=== PATIENT | female | born 2000 | race Caucasian/White ===

== ENCOUNTER 2021-10-18 06:04 | Inpatient (IN) ==
[2021-10-18] MEDS ORDERED: PITOCIN ONE (06:28)
[2021-10-18] MEDS ORDERED: D5 1/2 NS 1,000 ML 1,000 ML IV ONE (06:29)
[2021-10-18] MEDS ORDERED: BETADINE SOLN ONE (06:29)
[2021-10-18] MEDS ORDERED: D5 1/2 NS 1,000 mL + PITOCIN 20 UNITS/L IV 20 UNITS/1,000 ML BAG IV ONE (06:30)
[2021-10-18] MEDS ORDERED: D5 LR + PITOCIN 10 UNITS/L 10 UNITS/1,000 ML BAG IV ONE (06:30)
[2021-10-18] MEDS ORDERED: AMPICILLIN VIAL 2 GRAM 2 G in NS 100 ML IV 100 ML IV SCH (06:59)
[2021-10-18] MEDS ORDERED: REGLAN INJ 10 MG VIAL IVP PRN (06:59)
[2021-10-18] MEDS ORDERED: PHENERGAN INJ 25 MG IM PRN ×2 (06:59→18:57)
[2021-10-18] MEDS ORDERED: NUBAIN INJ 200 MG VIAL MULTIDOSE IVP PRN (06:59)
[2021-10-18] MEDS ORDERED: MORPHINE SULFATE INJ 2 MG INJ IVP PRN (06:59)
[2021-10-18] MEDS ORDERED: D5 1/2 NS 1,000 ML 1,000 ML IV SCH (06:59)
[2021-10-18] MEDS ORDERED: PITOCIN IVP ONE (06:59)
[2021-10-18] MEDS ORDERED: AMPICILLIN VIAL 1 GRAM 1 G in NS 50 ML IV + SPIKE MINIBAG* 50 ML IV SCH (06:59)
[2021-10-18] MEDS ORDERED: D5 LR + PITOCIN 10 UNITS/L 10 UNITS/1,000 ML BAG IV PRN (06:59)
--- NOTE | 2021-10-18 07:08 | DR.OB ---
OB Quick Note - Assessment/Plan Assessment/Plan: L&D 10/18/21 at 7:00am S-No compliant. O-Afebrile,VSS DCN=[id number] with good LTV, +accel, no decel. CTX=occasional, mild CVX=2cm/50%/-1/VTX AROM with clear fluid. IUPC and FSE placed. A-IUP at 38 4/7 weeks for induction PIH +GBS P-Begin pitocin induction IV ABX for +GBS in labor F/U labs and preeclamptic labs
[2021-10-18 07:20] LABS: BILIRUBIN,URINE NEGATIVE (NEGATIVE); BLOOD/HEMOGLOBIN,URINE 2+ (NEGATIVE); GLUCOSE, URINE NEGATIVE (NEGATIVE); KETONES,URINE NEGATIVE (NEGATIVE); LEUKOCYTE ESTERASE ,URINE 1+ (NEGATIVE); NITRITES,URINE NEGATIVE (NEGATIVE); PH,URINE 6.5 (5.0 - 8.0); PROTEIN,URINE NEGATIVE (NEGATIVE); UROBILINOGEN,URINE NORMAL (NORMAL)
[2021-10-18] MEDS ORDERED: AMPICILLIN VIAL 2 GRAM ONE (07:25)
[2021-10-18] MEDS ORDERED: NS 100 ML IV 100 ML ONE ×2 (07:26→11:10)
[2021-10-18 07:37] LABS: BASOPHILS # (AUTO) 0.1 X10^3/uL (0.0-0.1); BASOPHILS % (AUTO) 0.8 % (0.2-1.0); EOSINOPHILS # (AUTO) 0.2 x10^3/uL (0.0-0.2); EOSINOPHILS % (AUTO) 1.9 % (0.9-2.9); HEMATOCRIT 32.3 % (36.0-47.0); HEMOGLOBIN 11.4 g/dL (12.0-16.0); LYMPHOCYTES # (AUTO) 1.9 X10^3/uL (1.3-2.9); LYMPHOCYTES % (AUTO) 20.4 % (21.0-51.0); MEAN CORPUSCULAR HEMOGLOBIN 32.2 pg (27.0-34.0); MEAN CORPUSCULAR HGB CONC 35.1 g/dL (33.0-35.0); MEAN CORPUSCULAR VOLUME 91.7 fL (80.0-100.0); MEAN PLATELET VOLUME 9.1 fL (7.4-11.0); MONOCYTES # (AUTO) 0.8 x10^3/uL (0.3-0.8); MONOCYTES % (AUTO) 8.5 % (0.0-13.0); NEUTROPHILS # (AUTO) 6.2 x10^3/uL (2.2-4.8); NEUTROPHILS % (AUTO) 68.4 % (42.0-75.0); RED BLOOD COUNT 3.52 X10^6/uL (3.5-5.4); RED CELL DISTRIBUTION WIDTH 13.5 % (11.6-16.5); WHITE BLOOD COUNT 9.1 X10^3/uL (3.6-10.0)
[2021-10-18 07:40] LABS: APPEARANCE,URINE CLEAR (CLEAR); COLOR,URINE YELLOW (YELLOW)
[2021-10-18 07:41] LABS: BACTERIA,URINE TRACE /HPF (NEGATIVE); RBC,URINE 0-2 /HPF (0-3); SQUAMOUS EPITHELIAL CELL,UR FEW /HPF (NEGATIVE)
[2021-10-18 07:45] LABS: ALANINE AMINOTRANSFERASE 16 Units/L (12-78); ALBUMIN 2.5 g/dL (3.4-5.0); ALKALINE PHOSPHATASE 252 Units/L (46-116); ASPARTATE AMINO TRANSFERASE 17 Units/L (15-37); BLOOD UREA NITROGEN 10 mg/dL (7-18); CALCIUM 8.7 mg/dL (8.5-10.1); CARBON DIOXIDE 23.6 mmol/L (21-32); CHLORIDE 104 mmol/L (98-107); COR CA(FOR HYPOALB) 9.9 mg/dL (8.5-10.1); CREATININE 0.57 mg/dL (0.55-1.02); LACTATE DEHYDROGENASE 163 Units/L (81-234); SODIUM 137 mmol/L (136-145); TOTAL PROTEIN 6.7 g/dL (6.4-8.2); eGFR NON BLACK RACES > 60 (>60)
[2021-10-18] MEDS: VSL#3 PO SCH (08:43)
[2021-10-18] MEDS ORDERED: REGLAN INJ 10 MG VIAL ONE (08:44)
[2021-10-18] MEDS ORDERED: LR 1,000 ML IV 1,000 ML IV ONE ×2 (11:09→15:47)
[2021-10-18] MEDS ORDERED: AMPICILLIN VIAL 1 GRAM ONE (11:10)
[2021-10-18] MEDS ORDERED: FENTANYL VIAL INJ 100 mcg ONE (11:39)
[2021-10-18] MEDS ORDERED: NAROPIN EPIDURAL 0.2% 100 ML ONE (11:40)
[2021-10-18] MEDS ORDERED: MOTRIN TAB 800 MG PO PRN (18:57)
--- NOTE | 2021-10-18 18:57 | DR.OB ---
OB Quick Note - Assessment/Plan Assessment/Plan: Delivery Note [employer]IOR [employer] DIRECTOR 10/18/21 at 18:39 Patient complete and pushing. Head delivered spontaneously over intact perineum. Nose and mouth bulb suctioned. No nuchal cord. Body delivered over intact perineum. Late meconium noted. Cord clamped x 2 and cut. Infant handed to attendant. Cord sent for gases. Placenta delivered spontaneously / intact / 3 vessel cord. No CVX / vaginal / perineal tears. Viable male infant, VTX/OA, wt=6'10" and 5/9, stable to NBN. Mother stable to RR. PJM=[id number].
[2021-10-18] MEDS: D5 1/2 NS 1,000 ML 1,000 ML with PITOCIN 20 UNITS IV SCH ×2 (19:00)
[2021-10-18] MEDS ORDERED: ADACEL or BOOSTRIX TDaP VACCINE IM ONE (20:02)
[2021-10-18] MEDS ORDERED: DERMOPLAST PAIN RELIEF SPRAY TOP PRN (20:02)
[2021-10-18] MEDS ORDERED: AMBIEN PO PRN (20:02)
[2021-10-18] MEDS ORDERED: MILK OF MAGNESIA PO PRN (20:02)
[2021-10-19] MEDS: VSL#3 PO SCH ×2 (01:06→08:43)
[2021-10-19] MEDS: NORMODYNE TAB 100 MG PO SCH ×2 (01:17→08:43)
[2021-10-19] MEDS: D5 1/2 NS 1,000 ML 1,000 ML with PITOCIN 20 UNITS IV SCH ×4 (05:03→12:08)
[2021-10-19 05:25] LABS: HEMATOCRIT 29.7 % (36.0-47.0); HEMOGLOBIN 10.3 g/dL (12.0-16.0)
[2021-10-19] MEDS ORDERED: PRENATAL PLUS PO SCH (09:00)
[2021-10-19 16:22] VITALS: BP 128/62
== END 2021-10-19 20:15 | disposition home or self-care (01) | DRG 805 ==
LOC: LD 06:04 → MED/SURG 20:26
PROVIDERS: ADMIT Specialist; ATTEND Specialist
DX: O98.82 Other maternal infectious and parasitic diseases complicating childbirth; Z37.0 Single live birth; U07.1 COVID-19; B95.1 Streptococcus, group B, as the cause of diseases classified elsewhere; O13.3 Gestational [pregnancy-induced] hypertension without significant proteinuria, third trimester; Z3A.38 38 weeks gestation of pregnancy